=== PATIENT | male | born 1955 | race Caucasian/White ===

== ENCOUNTER 2022-10-15 07:03 | Outpatient (CLI) | payer OTHER, MEDICARE, SELFPAY ==
--- NOTE | 2022-10-15 07:21 | CRLHL7_ITS ---
For Patients: As a result of the Cures Act, medical imaging exams and procedure reports are released immediately into your electronic medical record. You may view this report before your referring provider. If you have questions, please contact your health care provider. INDICATION: New onset headaches. TECHNIQUE: Sagittal T1 axial FLAIR T2 with region weighted and gadolinium-enhanced axial and coronal T1 weighted images of the brain. FINDINGS: The lateral 3rd and 4th ventricles are normal in size and shape. There is no evidence of recent ischemic infarction. There is no evidence of intracranial hemorrhage. No subdural or epidural fluid collections. No mass effect. No enhancing intra-axial or extra-axial lesion. Brainstem and cerebellum appear normal. The orbits, sella turcica, paranasal sinuses and skullbase are unremarkable. IMPRESSION: Negative MRI brain. No evidence of recent infarction, intracranial hemorrhage, mass or enhancing lesion. Dictated by Timothy Rodriguez MD @ 10/15/2022 11:41:13 AM (Electronically Signed)
== END 2022-10-15 07:04 | disposition home or self-care (01) ==
PROVIDERS: PCP Family Medicine; Visit Provider Family Medicine
DX: R51.9 Headache, unspecified (principal)
CPT/HCPCS: 70553; A9575